=== PATIENT | male | born 1980 | race Caucasian/White ===

== ENCOUNTER 2021-06-27 15:58 | Emergency (ER) | payer OTHER, SELFPAY ==
[2021-06-27 16:10] VITALS: BP 138/92; PULSE 118; RESP 16; TEMP 37.2; O2SAT 99
--- NOTE | 2021-06-27 16:47 | ED.LOWEXIN ---
HPI - Extremity Injury (Lower) General Chief Complaint: Extremity Injury, Lower Stated Complaint: Left foot Pain Time Seen by Provider: 06/27/21 16:47 Source: patient Mode of arrival: ambulatory Limitations: no limitations History of Present Illness HPI Narrative: Fracisco Olvera is a 41-year-old male with a PMH of hypertension who comes to [facility] with what appears to be an flare of gout on the left forefoot. He has a history of gout episodes but in the last year has had multiple ones usually in the other foot. In the past he is taking meloxicam has developed somewhat of a tolerance with drug and has been given taper packs Related Data Home Medications Medication Instructions Recorded Confirmed amlodipine 5 mg PO DAILY 06/27/21 06/27/21 Allergies Allergy/AdvReac Type Severity Reaction Status Date / Time ciprofloxacin Allergy Unknown Rash Verified 06/27/21 16:43 Review of Systems Review of Systems: CONSTITUTIONAL: Denies fever, chills, sweats. EYES: Denies visual changes, redness, discharge. ENT: Denies rhinorrhea, congestion, sore throat, otalgia. CARDIOVASCULAR: Denies chest pain, palpitations, edema. RESPIRATORY: Denies dyspnea, wheezing, cough GASTROINTESTINAL: Denies abdominal pain, nausea, vomiting, diarrhea. GENITOURINARY: Denies dysuria, hematuria, abnormal discharge SKIN: Denies rash or itching. NEUROLOGIC: Denies numbness, or focal weakness. PSYCHIATRIC: Denies anxiety or depression. Left foot swelling at the forefront area no obvious abrasions or puncture wounds PMFSH Past Medical History Medical History Gout Hypertension Social History Social History Smoking status: Current every day smoker Alcohol intake: current Comments At time of signature, I agree with nursing past medical, surgical, social and family history. There is no relevant family history pertinent to the presenting complaint. Exam Narrative: GENERAL: This is a well-nourished, well-developed patient, in moderate distress. HEAD: normocephalic, atraumatic. EYES: Sclera clear/white. Vision is grossly intact. EARS: External ears normal. Hearing grossly intact. NOSE: External nose normal without nasal discharge THROAT: Mucous membranes moist, NECK: Neck supple, non-tender CARDIOVASCULAR: Regular rate and rhythm without murmurs, gallops, or rubs. RESPIRATORY: Clear to auscultation. Breath sounds equal bilaterally. No wheezes, rales, or rhonchi. GASTROINTESTINAL: Abdomen soft, non-tender, SKIN: warm, intact with swelling to the left forefront of his foot with pain and tenderness at palpation 2+ pedal pulse good capillary refill to all toes no obvious puncture wounds; NEURO: awake, alert, and oriented to person, place and time. There were no obvious focal neurologic abnormalities. Steady gait EXTREMITIES: Normal range of motion. Left swelling forefoot BACK: Nontender without deformity Course Course Emergency Course: Patient comes with left swollen forefoot with a history of gout Started on colchicine, tramadol, Medrol Dosepak-should see PCP about further anti-inflammatories Work excuse given for rest of weekend and placed in postop shoe and Mickey wrap Vital Signs Vital signs: Vital Signs Temperature 98.9 F 06/27/21 16:10 Pulse Rate 118 H 06/27/21 16:10 Respiratory Rate 16 06/27/21 16:10 Blood Pressure 138/92 H 06/27/21 16:10 Pulse Oximetry 99 06/27/21 16:10 Temperature 98.9 F 06/27/21 16:10 Pulse Rate 118 H 06/27/21 16:10 Respiratory Rate 16 06/27/21 16:10 Blood Pressure 138/92 H 06/27/21 16:10 Pulse Oximetry 99 06/27/21 16:10 MDM - Extremity Injury (Lower) Differential Diagnosis Differential diagnosis: Likely ankle sprain and strain, puncture wound of foot and other (Gout) Critical Care Time Critical Care Time Critical Care Time: No Discharge Plan Discharge Clinical Impr
== END 2021-06-27 17:25 | disposition home or self-care (01) ==
PROVIDERS: Emergency Provider Nurse Practitioner; PCP Internal Medicine
DX: M10.9 Gout, unspecified (principal); I10 Essential (primary) hypertension; F17.200 Nicotine dependence, unspecified, uncomplicated
CPT/HCPCS: 99213; G0463

== ENCOUNTER 2021-09-01 17:02 | Emergency (ER) | payer OTHER, SELFPAY ==
[2021-09-01 17:12] VITALS: BP 150/99; PULSE 103; RESP 16; TEMP 36.8; O2SAT 100
--- NOTE | 2021-09-01 17:36 | ED.URI ---
HPI - URI/Sore Throat General Chief Complaint: Upper Respiratory Infection Stated Complaint: chest congestion Time Seen by Provider: 09/01/21 17:36 Source: patient, RN notes reviewed and old records reviewed Mode of arrival: ambulatory Limitations: no limitations History of Present Illness HPI Narrative: 41-year-old male presents to the [facility] care with complaints of 1 week of body aches, chills, ear pain, cough and congestion. No treatment prior to arrival. Has a history of hypertension MD elicited complaint: cough, rhinorrhea and nasal congestion Related Data Home Medications Medication Instructions Recorded Confirmed amlodipine 5 mg PO DAILY 06/27/21 06/27/21 Allergies Allergy/AdvReac Type Severity Reaction Status Date / Time ciprofloxacin Allergy Unknown Rash Verified 06/27/21 16:43 Review of Systems Review of Systems: All systems reviewed & are unremarkable except as noted in HPI and below Constitutional: Constitutional: Reports as per HPI, Reports chills, Reports fatigue, Denies fever(s) and Denies headache(s) Eyes: Eyes: Reports no additional eye complaints ENT: Reports as per HPI, Denies vertigo, Denies dizziness, Denies headache(s), Denies nasal congestion and Denies sore throat Cardiovascular: Cardiovascular: Reports no additional cardiovascular complaints, Denies chest pain, Denies syncope, Denies rapid heart rate and Denies dyspnea Respiratory: Respiratory: Reports as per HPI, Reports cough, Denies dyspnea and Denies wheezing Gastrointestinal: Gastrointestinal: Reports no additional gastrointestinal complaints, Denies abdominal pain, Denies diarrhea, Denies nausea and Denies vomiting Musculoskeletal: Musculoskeletal: Reports as per HPI, Reports myalgias and Denies numbness Integumentary/Breasts: Skin/Breast: Reports system reviewed and no additional complaints, except as docu Neurologic: Reports system reviewed and no additional complaints, except as documented, Denies vertigo, Denies dizziness, Denies syncope, Denies headache(s), Denies focal weakness and Denies numbness Psychiatric: Psychiatric: Reports no additional psychiatric complaints Allergic/Immunologic: Allergic/Immunologic: Reports no additional allergic/immunologic complaints and Denies wheezing PMFSH Past Medical History Medical History Gout Hypertension Social History Social History Smoking status: Current every day smoker Alcohol intake: current Comments At the time of my signature, I reviewed and agree with the nursing past medical, surgical, social, and family history. There is no relevant family history pertinent to the patient complaint. Exam Const: General: cooperative, no acute distress, well developed, alert and ill appearing acutely (mild) Nutritional Appearance: well nourished Orientation/consciousness: patient oriented x3 Limitations: no limitations HENMT: Head: normal to inspection Ears: external ears normal, TM's normal bilaterally and EAC's normal Eyes: Conjunctivae: conjunctivae normal Pupils: Equal, round and reactive pupils present Neck: Neck: normal visual inspection, no lymphadenopathy and no meningeal signs Chest: Chest palpation & inspection: normal inspection of the chest Resp: Effort & Inspection: normal respiratory effort and no use of accessory muscles Auscultation: clear to auscultation bilaterally, no crackles, no rales, no rhonchi and no wheezes Cardio: Rate: regular rate Rhythm: regular rhythm Back/Spine/Pelvis: Back: no CVA tenderness Skin: General skin exam: normal color Rashes: no rashes Wounds: no wounds Neuro: General: patient oriented x3, moves all extremities, no meningeal signs and no focal motor deficits Cranial nerves: Yes Equal, round and reactive pupils present Speech: normal speech Gait exam (Neuro): Normal gait present Extrem: General: normal to inspection,
== END 2021-09-01 18:12 | disposition home or self-care (01) ==
PROVIDERS: Emergency Provider Nurse Practitioner
DX: J10.1 Influenza due to other identified influenza virus with other respiratory manifestations (principal); M10.9 Gout, unspecified; I10 Essential (primary) hypertension
CPT/HCPCS: 87804; 99213; G0463

== ENCOUNTER 2022-03-18 14:28 | Emergency (ER) | payer OTHER, SELFPAY ==
[2022-03-18 14:37] VITALS: BP 126/86; PULSE 106; RESP 18; TEMP 36.6; O2SAT 99
--- NOTE | 2022-03-18 14:50 | PC.NURSE ---
Parents - Yves [phone]
[2022-03-18 14:52] LABS: Basophils Absolute Auto 0.1 K/mm3 (0.0-0.1); Basophils Percent Auto 0.7 % (0.2-1.2); Eosinophils Percent Auto 0.4 % (0-4.4); Hematocrit 39.2 % (42.0-52.0); Hemoglobin 13.1 g/dL (14.0-18.0); Immature Granulocyte Absolute 0.04 K/mm3 (0.00-0.031); Immature Granulocyte Percent A 0.4 % (0-0.5); Lymphocytes Absolute Auto 1.99 K/mm3 (0.9-3.2); Mean Corpuscular HGB Conc 33.4 g/dl (32-36); Mean Corpuscular Hemoglobin 30.1 pg (26-34); Mean Corpuscular Volume 90.1 fl (80-100); Mean Platelet Volume 9.6 fl (7.4-10.4); Monocytes Absolute Auto 1.1 K/mm3 (0.1-0.6); Monocytes Percent Auto 10.3 % (2.6-8.5); Neutrophils Absolute Auto 7.8 K/mm3 (1.3-6.7); Neutrophils Percent Auto 70.2 % (45.5-73.1); Platelet Count Result 402 k/mm3 (150-375); Red Blood Count 4.35 M/mm3 (4.6-6.20); Red Cell Distribution Width 12.4 % (11.5-14.5)
[2022-03-18 14:58] LABS: Ethanol 21 mg/dL (<10)
--- NOTE | 2022-03-18 15:05 | ED.GENADULT ---
HPI - General Adult General Chief complaint: Psychiatric Symptoms Stated complaint: hallucinations with SI and HI Time Seen by Provider: 03/18/22 14:33 History of Present Illness HPI narrative: Patient is a 41-year-old male who presents ER with suicidal ideation and vague homicidal ideation. Suicidal ideation is related to the fact that he uses drugs often that he is lost his job. Currently used today. Typically uses amphetamines. He reports he is also drinking on occasion. No fevers or chills or sweats. He plans to kill himself by overdosing on drugs. After overdosing he would attempt to go out and find his daughters rapist to kill that individual as well. He does not actively intend on doing that now but that is what he would do should he decide to kill himself. Family brought him here for help. Patient has no medical complaints Related Data Home Medications Medication Instructions Recorded Confirmed amlodipine 5 mg tablet 5 mg PO DAILY 06/27/21 06/27/21 Allergies Allergy/AdvReac Type Severity Reaction Status Date / Time ciprofloxacin Allergy Unknown Rash Verified 06/27/21 16:43 Review of Systems Review of Systems: All systems reviewed & are unremarkable except as noted in HPI and below Constitutional: Constitutional: Denies chills, Denies fatigue and Denies fever(s) ENT: Denies nasal congestion and Denies sore throat Cardiovascular: Cardiovascular: Denies chest pain, Denies rapid heart rate and Denies radiating jaw, neck or arm pain Respiratory: Respiratory: Denies cough and Denies dyspnea Gastrointestinal: Gastrointestinal: Denies abdominal pain, Denies nausea and Denies vomiting Psychiatric: Psychiatric: Reports anxiety, Reports depression, Reports homicidal ideation and Reports suicidal ideation [facility] Past Medical History Medical History (Updated 03/18/22 @ 21:56 by Dheeraj Quach MD) Gout Hypertension Surgical History Surgical History (Updated 03/18/22 @ 20:44 by Dheeraj Quach MD) No pertinent past surgical history Social History Social History Smoking status: Current every day smoker Alcohol intake: current Substance use type: methamphetamine Exam Narrative: GENERAL: Anxious-appearing, well-nourished, and in no acute distress. HEAD: Normocephalic, atraumatic. EYES: PERRL and EOMI. ENT: Mucous membranes moist. CHEST: Clear to auscultation. No respiratory distress. HEART: Tachycardic and regular. Normal peripheral pulses. ABDOMEN: Soft, nontender, nondistended. EXTREMITIES: Normal range of motion. No edema. SKIN: Warm, dry, no rash. NEURO: Alert and oriented x3. PSYCH: Report suicidal ideation and thoughts that he could kill his daughters rapist but no active plan to do so. Course Course Emergency Course: Patient evaluated by crisis. Accepted to [facility] by Dr. Forrest. Reevaluation(s) Reevaluation #1: Patient is medically stable and cleared for placement in psych facility and for transport. Date: 03/18/22 Time: 20:40 Vital Signs Vital signs: Vital Signs Temperature 97.8 F 03/18/22 14:37 Pulse Rate 106 H 03/18/22 14:37 Respiratory Rate 18 03/18/22 14:37 Blood Pressure 126/86 03/18/22 14:37 Pulse Oximetry 99 03/18/22 14:37 Temperature 97.8 F 03/18/22 14:37 Pulse Rate 106 H 03/18/22 14:37 Respiratory Rate 18 03/18/22 14:37 Blood Pressure 126/86 03/18/22 14:37 Pulse Oximetry 99 03/18/22 14:37 Medical Decision Making Vital Signs Vital Signs: Vital Signs Temperature 97.8 F 03/18/22 14:37 Pulse Rate 106 H 03/18/22 14:37 Respiratory Rate 18 03/18/22 14:37 Blood Pressure 126/86 03/18/22 14:37 Pulse Oximetry 99 03/18/22 14:37 Temperature 97.8 F 03/18/22 14:37 Pulse Rate 106 H 03/18/22 14:37 Respiratory Rate 18 03/18/22 14:37 Blood Pressure 126/86 03/18/22 14:37 Pulse Oximetry 99 03/18/22 14:37 Lab Data Res
[2022-03-18 15:13] LABS: Alanine Aminotransferase 73 U/L (6-50); Albumin Level 4.8 g/dL (3.5-5.1); Alkaline Phosphatase 64 U/L (38-126); Anion Gap 15 mmol/L (8-16); Aspartate Amino Transferase 95 U/L (17-59); Bilirubin,Total 0.9 mg/dL (0.2-1.3); Blood Urea Nitrogen 12 mg/dL (9-20); Calcium 9.3 mg/dL (8.4-10.2); Carbon Dioxide 24 mmol/L (22-30); Chloride 102 mmol/L (98-107); Estimated CRCL calculation 70 ml/min; Estimated Glomerular Filt Rate 60; Glucose 81 mg/dL (65-110); Potassium 3.9 mmol/L (3.4-5.0); Sodium 141 mmol/L (137-145)
--- NOTE | 2022-03-18 17:48 | PC.NURSE ---
Pt. attempted to urinate x2. Pt. given multiple cups of water now. Pt. aware if he is unable urinate that we will have to use a straight catheter to obtain sample.
[2022-03-18 18:52] LABS: Appearance Urine Clear (Clear); Bilirubin Urine 1+ (Negative); Blood Urine Negative (Negative); Color Urine Yellow (Yellow); Glucose Urine UA Negative (Negative); Ketones Urine 3+ mg/dL (Negative); Leukocyte Esterase Ur Negative LEU/UL (Negative); Nitrate Urine Negative (Negative); Protein Urine Negative (Negative); Specific Grav Ur 1.025 (1.001-1.035); Urobilinogen Urine 0.2 mg/dL (<2.0); pH Urine 5.5 (5.0-9.0)
[2022-03-18 18:56] LABS: Bacteria Urine Trace /hpf; Mucus Urine Rare /lpf; Squamous Epithelial Cell Urine Rare /hpf (Few); WBC Urine 0-3 /hpf
[2022-03-18 18:58] LABS: Add Urine Microscopic? YES
[2022-03-18 19:11] LABS: Barbiturate Screen Urine Negative (Negative); Benzodiazepines Screen Urine Positive (Negative)
[2022-03-18 19:17] LABS: Cannabinoid Screen Urine Positive (Negative); Cocaine Screen Urine Negative (Negative); Methadone Screen Urine Negative (Negative); Opiate Screen Urine Negative (Negative); Phencyclidine Screen Urine Negative (Negative)
[2022-03-18 19:49] LABS: Amphetamine Screen Urine Positive (Negative)
[2022-03-18 20:22] LABS: SARS-CoV-2 RNA PCR Negative
[2022-03-18] MEDS: IBUPROFEN 600 MG TABLET PO (23:02)
--- NOTE | 2022-03-18 23:13 | PC.NURSE ---
Pt. accepted to [facility] however [facility] will call when Pt. officially has a bed.
[2022-03-19 00:13] VITALS: BP 145/86; PULSE 95; RESP 18; TEMP 36.9; O2SAT 97
--- NOTE | 2022-03-19 00:14 | PC.NURSE ---
Assumed care of pt, pt is standing and acting appropriate reports anxiety pt requesting p.o. medication for symptoms will discuss with EDP. Pt knows there is a bed at [facility] discusssed pt's POC at this time VSS
--- NOTE | 2022-03-19 00:20 | PC.NURSE ---
Per Janine verbal order read back pt no longer needs sitter at bedside r/t denies HI/SI ordered p.o. ativan for anxiety pt knows. Charge nurse notified of this information
[2022-03-19] MEDS: LORazepam (*CRX) 1 MG TABLET PO (00:27)
--- NOTE | 2022-03-19 00:52 | PC.NURSE ---
I spoke with Gino from [facility] regarding the pt's bed. Pt report was given to Gino and room 327[facility] Gino stated to call him at [phone] when the pt is being transferred per EMS.
--- NOTE | 2022-03-19 03:05 | PC.NURSE ---
Call made to Nurse Christian at [facility] to let him know the pt was taken by EMS for transfer
== END 2022-03-19 03:01 ==
PROVIDERS: Emergency Provider Emergency Medicine; PCP Internal Medicine
DX: R45.851 Suicidal ideations (principal); F19.10 Other psychoactive substance abuse, uncomplicated; M10.9 Gout, unspecified; I10 Essential (primary) hypertension; Z20.822 Contact with and (suspected) exposure to COVID-19; F17.200 Nicotine dependence, unspecified, uncomplicated
CPT/HCPCS: 36415; 80053; 80307; 81001; 84443; 85025; 99285; A9270; C9803; U0003; U0005

== ENCOUNTER 2023-06-14 10:47 | Emergency (ER) | payer OTHER, SELFPAY ==
--- NOTE | ~2023-06-14 | XR_ITS ---
XR knee LT 3V 06/14/2023 11:28 Indication: Left knee pain Procedure: 3 views left knee Comparison: No prior studies for comparison. Findings: No fracture, subluxation or dislocation. No significant joint effusion. No foreign bodies. Impression: 1: No acute abnormality of the left knee. Reviewed, dictated and finalized at location L. Impression: 1: No acute abnormality of the left knee.
[2023-06-14 10:54] VITALS: BP 134/85; PULSE 80; RESP 16; TEMP 36.6; O2SAT 98
--- NOTE | 2023-06-14 11:08 | ED.LOWEXIN ---
HPI - Extremity Injury (Lower) General Chief Complaint: Extremity Injury, Lower Stated Complaint: Left Knee Pain Time Seen by Provider: 06/14/23 11:08 Source: patient, RN notes reviewed and old records reviewed Mode of arrival: ambulatory Limitations: no limitations History of Present Illness HPI Narrative: 43-year-old male presents to the [facility] with complaints of left knee pain. Patient states that he slipped on water and twisted his knee heard a pop and felt a pop when he ?did splits. ? Tenderness left medial posterior knee Has taken ibuprofen and naproxen Related Data Home Medications Medication Instructions Recorded Confirmed amlodipine 5 mg tablet 5 mg PO DAILY 06/27/21 06/14/23 naproxen 500 mg tablet 500 mg DIRECTED 06/14/23 06/14/23 Allergies Allergy/AdvReac Type Severity Reaction Status Date / Time ciprofloxacin Allergy Unknown Rash Verified 06/27/21 16:43 Review of Systems Review of Systems: All systems reviewed & are unremarkable except as noted in HPI and below Constitutional: Constitutional: Reports no additional constitutional complaints Eyes: Eyes: Reports no additional eye complaints ENT: Reports system reviewed and no additional complaints, except as documented Cardiovascular: Cardiovascular: Reports no additional cardiovascular complaints, Denies chest pain and Denies dyspnea Respiratory: Respiratory: Reports no additional respiratory complaints, Denies chest congestion, Denies cough and Denies dyspnea Gastrointestinal: Gastrointestinal: Reports no additional gastrointestinal complaints, Denies abdominal pain, Denies nausea and Denies vomiting Musculoskeletal: Musculoskeletal: Reports as per HPI, Reports arthralgias and Denies joint swelling Integumentary/Breasts: Skin/Breast: Reports system reviewed and no additional complaints, except as docu Neurologic: Reports system reviewed and no additional complaints, except as documented Psychiatric: Psychiatric: Reports no additional psychiatric complaints Allergic/Immunologic: Allergic/Immunologic: Reports no additional allergic/immunologic complaints [facility] Past Medical History Medical History Gout Hypertension Surgical History Surgical History No pertinent past surgical history Social History Social History Smoking status: Current every day smoker Alcohol intake: current Substance use type: methamphetamine Comments At the time of my signature, I reviewed and agree with the nursing past medical, surgical, social, and family history. There is no relevant family history pertinent to the patient complaint. Exam Const: General: cooperative, healthy appearing, comfortable, no acute distress, well developed, alert and well nourished Nutritional Appearance: well nourished Orientation/consciousness: patient oriented x3 Limitations: no limitations HENMT: Head: normal to inspection Ears: hearing grossly normal bilaterally and external ears normal Face/Nose/Sinus: Normal external nose present, Normal nares present, Normal nasal mucous membranes and turbinates present, normal facial exam and face symmetric Face and sinus: normal facial exam and face symmetric Eyes: General: appearance normal, both eyes and all related structures Alignment and Position: alignment normal Periorbital: periorbital findings normal Pupils: Equal, round and reactive pupils present EOM: EOMs intact bilaterally Neck: Neck: normal visual inspection, full ROM, no lymphadenopathy and no meningeal signs Chest: Chest palpation & inspection: normal inspection of the chest Resp: Effort & Inspection: normal respiratory effort and able to speak in complete sentences Cardio: Rate: regular rate Rhythm: regular rhythm Back/Spine/Pelvis: Cervical Spine: cervical ROM normal Skin: General skin exam
== END 2023-06-14 11:51 | disposition home or self-care (01) ==
PROVIDERS: Emergency Provider Nurse Practitioner; PCP Internal Medicine
DX: S83.92XA Sprain of unspecified site of left knee, initial encounter (principal); W18.40XA Slipping, tripping and stumbling without falling, unspecified, initial encounter; I10 Essential (primary) hypertension; M10.9 Gout, unspecified; F17.200 Nicotine dependence, unspecified, uncomplicated; F15.90 Other stimulant use, unspecified, uncomplicated
CPT/HCPCS: 73562; 99213; G0463

== ENCOUNTER 2023-06-16 23:59 | Emergency (ER) | payer OTHER, SELFPAY ==
[2023-06-17] VITALS (18 sets, daily range): BP systolic 126–151; BP diastolic 84–114; PULSE 85–90; RESP 14–18; TEMP 37.1; O2SAT 93–99
--- NOTE | 2023-06-17 00:42 | PC.NURSE ---
Pt reports twisting L knee approx 1 week ago. Received neg xrays. L calf started swelling and becoming red today with pain. Pt also has a red patch around medial ankle. Both legs feel equally warm. Pt able to ambulate with limp to room, refused wc.
[2023-06-17] MEDS: CEPHALEXIN 500 MG CAPSULE PO (02:52)
[2023-06-17] MEDS: ACETAMINOPHEN 500 MG TABLET 1000 MG PO (02:52)
--- NOTE | 2023-06-17 02:57 | ED.EXTPRO ---
HPI - Extremity Problem General Chief complaint: Extremity Problem,Nontraumatic Stated complaint: swelling to ankle Time Seen by Provider: 06/17/23 02:18 Source: patient Limitations: no limitations History of Present Illness HPI Narrative: Patient is a 43-year-old male present to the emergency department complaining of a rash and swelling to his left leg. Patient states he had no recent twisting injury a couple weeks ago to his left knee and was seen at x-rays done and was overall doing okay however he was laying around and relatively immobile afterwards. Patient noticed over the past approximately 24 hours he developed some redness of his left leg with associated swelling and denies any history of this in the past. Patient denies fever, vomiting, diarrhea, recent illness, dysuria, hematuria, urinary frequency. Patient denies any joint pain. Patient denies any new or changed medications. Patient denies any discharge. Patient admits to a small amount of pain over the same region as the rash. Patient notes that the rash seems to be diffuse throughout the tibia-fibula region but does not seem to be rapidly spreading. Patient denies any new creams or new exposures. Patient tried some Advil for the pain. Patient denies history of blood clots. Patient denies any recent travel. Related Data Home Medications Medication Instructions Recorded Confirmed amlodipine 5 mg tablet 5 mg PO DAILY 06/27/21 06/14/23 naproxen 500 mg tablet 500 mg DIRECTED 06/14/23 06/14/23 Allergies Allergy/AdvReac Type Severity Reaction Status Date / Time ciprofloxacin Allergy Unknown Rash Verified 06/27/21 16:43 Review of Systems Review of Systems: A 10 system review of systems was completed on the patient and is negative except for what is stated in the HPI. Nursing and ancillary documentation was reviewed. [facility] Past Medical History Medical History Gout Hypertension Surgical History Surgical History No pertinent past surgical history Social History Social History Smoking status: Current every day smoker Alcohol intake: current Substance use type: methamphetamine Comments At time of signature, I have reviewed and agree with nursing past medical, surgical, social and family history unless otherwise noted. Please see the nursing chart for further information. There is no relevant family history pertinent to the presenting complaint. Exam Narrative: CONST: No acute distress. Well nourished. HENMT: Head is normocephalic and atraumatic. Moist mucous membranes. No posterior oropharynx erythema. EYES: No conjunctival icterus, injection, or pallor. PERRL. NECK: No meningeal signs. RESP: Able to speak in full sentences. Normal respiratory effort. CTAB. CARDIO: Regular rate. Regular rhythm. 2+ DP and radial pulses bilaterally. GI: Nondistended. No tenderness to palpation. Soft. : No CVA tenderness to palpation. SKIN: Diffuse erythema circumferentially throughout the left lower leg from the proximal tibia-fibula region to the distal tibia-fibula region with no involvement of the knee or the ankle joint, there is associated warmth, no palpable fluctuance, no palpable crepitus, no necrotic changes, mild tenderness to palpation, blanches well, compartments are soft. NEURO: Oriented x3. Moves all extremities. EXTREM: Active range of motion intact of the bilateral lower extremities without significant discomfort. Trace nonpitting left lower extremity edema from the knee distally. Course Vital Signs Vital signs: Vital Signs Temperature 98.7 F 06/17/23 00:03 Pulse Rate 90 06/17/23 00:03 Respiratory Rate 18 06/17/23 00:03 Blood Pressure 151/90 H 06/17/23 00:03 Pulse Oximetry 98 06/17/23 00:03 Oxygen Delivery Room Air 06/17/23 00:03 [facility]
[2023-06-17] MEDS: RIVAROXABAN 15 MG TABLET PO (03:40)
== END 2023-06-17 04:05 | disposition home or self-care (01) ==
PROVIDERS: Emergency Provider Student in an Organized Health Care Education/Training Program; PCP Internal Medicine
DX: L03.116 Cellulitis of left lower limb (principal); R60.0 Localized edema; I10 Essential (primary) hypertension; F17.200 Nicotine dependence, unspecified, uncomplicated
CPT/HCPCS: 93971; 99283; A9270

== ENCOUNTER 2023-06-17 07:01 | Outpatient (CLI) | payer OTHER, SELFPAY ==
--- NOTE | ~2023-06-17 | US_ITS ---
EXAMINATION: US venous doppler [facility] DATE: 06/17/2023 07:36 INDICATION: Left lower limb localized edema and swelling. TECHNIQUE: Grayscale ultrasound images without and with compression and Doppler ultrasound images of the left lower extremity veins were obtained. COMPARISON: None. FINDINGS: The visualized portions of left common femoral vein, profunda (deep) femoral vein, femoral vein, popl iteal vein, peroneal veins, posterior tibial veins, and greater saphenous vein outflow are patent. IMPRESSION: 1. No deep venous thrombosis. Reviewed, dictated and finalized at location E.
== END 2023-06-17 07:02 | disposition home or self-care (01) ==
PROVIDERS: PCP Internal Medicine; Referring Provider Student in an Organized Health Care Education/Training Program; Visit Provider Internal Medicine
DX: R60.0 Localized edema (principal)
CPT/HCPCS: 93971